=== PATIENT | female | born 1980 | race Caucasian/White ===

== ENCOUNTER 2019-06-07 18:15 | Observation (INO) ==
[2019-06-07 18:59] LABS: Basophils # (auto) 0.05 K/uL (0-0.2); Basophils % (auto) 0.8 %; Eosinophils # (auto) 0.07 K/uL (0-0.5); Eosinophils % (auto) 1.2 %; Hematocrit (blood only) 38.7 % (37-47); Hemoglobin 12.8 g/dL (12.0-16.0); Immature Granulocytes # (auto) 0.01 K/uL (0.00-0.02); Immature Granulocytes % (auto) 0.2 %; Lymphocytes # (auto) 1.73 K/uL (1.2-3.4); Mean Corpuscular Hemoglobin 29.4 pg (25-34); Mean Corpuscular Hgb Conc 33.1 g/dL (32-36); Monocytes # (auto) 0.45 K/uL (0.11-0.59); Monocytes % (auto) 7.5 %; Neutrophils # (auto) 3.66 K/uL (1.4-6.5); Neutrophils % (auto) 61.3 %; Platelet Count 281 K/uL (130-400); RDW Coefficient of Variation 13.8 % (11.5-14.5); RDW Standard Deviation 45.5 fL (36.4-46.3); Red Blood Count 4.35 M/uL (4.2-5.4); White Blood Count 5.97 K/uL (4.8-10.8)
[2019-06-07 19:08] LABS: Appearance Urine Cloudy (Clear); Bacteria Urine Automated 1+ (Negative); Blood Urine Negative (Negative); Color Urine Dark Yellow; Epithelial Cell Urine Auto >30 /lpf (0-5); Glucose Urine UA Negative (Negative); Ketones Urine 2+ (Negative); Leukocyte Esterase Urine 1+ (Negative); Nitrite Urine Negative (Negative); Protein Urine Trace (Negative); Specific Gravity Urine 1.028 (1.000-1.030); Urobilinogen Urine Negative (Negative); WBC Urine Automated >30 /hpf (0-5)
[2019-06-07 19:11] LABS: Prothrombin Time 9.8 Seconds (9.0-12.0)
[2019-06-07 19:16] LABS: BUN Creatinine Ratio 20.2 (10-20); Calcium 8.9 mg/dl (8.5-10.1); Creatinine Clr Calc Pharmacy 126.3 ml/min; Est GFR (African American) 129.2; Est GFR (Non-African American) 111.5; Potassium 3.4 mmol/L (3.5-5.1)
[2019-06-07 19:19] LABS: Bilirubin,Total 1.2 mg/dl (0.2-1)
[2019-06-07 19:24] LABS: Bilirubin Urine Negative (Negative); Ictotest Urine Negative (Negative)
[2019-06-07 19:29] LABS: Cast Urine Automated 0 /lpf (0-5)
[2019-06-07 19:36] LABS: Pregnancy Test, Serum Negative (Negative)
[2019-06-07] MEDS ORDERED: PIPERACILL/TAZOBAC CONSULT ACTIVE PRN (19:43)
[2019-06-07] MEDS ORDERED: PIPERACILLIN/TAZOBACTAM 4.5 GM/120 ML BAG IV ONE (19:43)
[2019-06-07] MEDS ORDERED: POTASSIUM CHLORIDE 20 MEQ TABCR PO STA (19:44)
[2019-06-07] MEDS: D5W AND LACTATED RINGERS 1,000 ML IV SCH (19:57)
--- NOTE | 2019-06-07 21:02 | Surgery Consultation ---
Date of Consultation June 07, 2019 Assessment & Plan (1) Acute cholecystitis due to biliary calculus: pt is a 38 year-old female who presents to Er with one week history RUQ, and back pain, U/S study- acute cholecystitis, cholelithiasis IMP: acute cholecystitis, cholelithiasis, Possible CBD stone I agree with hospitalist will admit pt to hospital, NPO, IV fluid IV antibiotic, zosyn, control pain, repeat labs in am , if (T) bilirubin up , pt need ERCP, if bilirubin normal, I will do laparoscopic cholecystectomy, possible open or cholangiogram, D/W benefits, risks and alternatives of the surgery, the risks - infection, bleeding, injury CBD, pt understood, she agrees with the plan, I answered all questions, D/W ER attending, History of Present Illness History of Present Illness CC: RUQ and back pain HPI: pt is a 38 year-old female who presents to ER with one week history RUQ and back pain with nausea, no vomiting, pt had U/S study at outside hospital diagnosis- acute cholecystitis with gallstone, pt denies fever, no diarrhea, no chest pain, today LFT's up. otherwise pt is healthy. Allergies Allergy/AdvReac Type Severity Reaction Status Date / Time No Known Allergies Allergy Verified 06/07/19 19:31 Home Medications Home Medications Medication Instructions Recorded Confirmed Type No Known Home Medications 06/07/19 06/07/19 History Patient History Surgical History (Updated 06/07/19 @ 18:54 by Sandy Witt) Previous section Social History Feels Safe at Home: Yes Smoking Status: Never smoker Review of Systems Review of Systems: All systems reviewed & are unremarkable except as noted in HPI & below Constitutional: as per Subjective / HPI Ear, Nose, Mouth, Throat: as per Subjective / HPI Respiratory: as per Subjective / HPI Cardiovascular: as per Subjective / HPI Gastrointestinal: as per Subjective / HPI Genitourinary: as per Subjective / HPI Physical Exam Constitutional: WD/WN, vitals as above well developed and well nourished ENMT: external ear and nose normal, oropharynx normal Neck: trachea midline, no thyromegaly Respiratory: normal respiratory effort, lungs clear to auscultation normal respiratory effort Cardiovascular: RRR, no murmur, no edema Rate/Rhythm: regular rate and regular rhythm Heart Sounds: normal S2 Gastrointestinal (Abdomen): normal bowel sounds, soft, nontender, no hepatosplenomegaly Percussion/Palpation: + abdomen tender and abdomen soft tenderness at RUQ, no rebound pain Musculoskeletal: no cyanosis or clubbing, extremities motor strength 5/5 Skin: no rashes, warm and dry Neurologic: patellar DTR's 2+ bilat, sensation intact Psychiatric: Orientation: alert and oriented x 3 Results & Data Vital Signs (Past 12 Hours) Vital Signs Temp Pulse Pulse Resp BP BP Pulse Ox 06/07/19 19:58 83 18 111/78 100 06/07/19 19:03 69 18 115/65 100 06/07/19 18:32 98 06/07/19 18:18 37.0 C 78 20 146/85 H 100 Laboratory Results Abnormal lab results 06/07/19 06/07/19 06/07/19 Range/Units 18:50 18:50 18:50 MPV 11.0 H (7.4-10.4) fL Potassium 3.4 L (3.5-5.1) mmol/L BUN/Creatinine Ratio 20.2 H (10-20) Total Bilirubin 1.2 H (0.2-1) mg/dl AST 203 H (15-37) U/L ALT 368 H (12-78) U/L Alkaline Phosphatase 837 H (45-117) U/L Urine Appearance Cloudy A (Clear) Urine Protein Trace H (Negative) Urine Ketones 2+ H (Negative) Ur Leukocyte Esterase 1+ H (Negative) Urine WBC (Auto) >30 H (0-5) /hpf Urine RBC (Auto) 10-30 H (0-4) /hpf U Epithel Cells (Auto) >30 H (0-5) /lpf Urine Bacteria (Auto) 1+ H (Negative)
--- NOTE | 2019-06-07 21:17 | History & Physical Report ---
Date of Service June 07, 2019 Assessment & Plan (1) Acute cholecystitis due to biliary calculus: Possible CBD stone No sepsis for now Hypokalemia secondary to poor p.o. intake Past tobacco abuse GMF Zosyn MRCP RE abnormal LFTs, possible CBD obstruction Surgery consult RE cholecystitis (Patient already seen by Dr. Tillman at the ER.) He recommends GI consultation for abnormal LFTs. Possible surgery during confinement. Replace potassium DVT prophylaxis. SCDs RE possible surgery (Recommend pharmacologic anticoagulation with Lovenox 40 mg SQ daily once bleeding risk is deemed to be minimal and negligible.) Full code Text document was generated using [employer] voice recognition software. It may contain grammatical or spelling errors. Kindly contact undersigned for clarification of any documentation item in question. History of Present Illness Chief Complaint: Cholecystitis Primary Care Provider: Ajit Fernandez MD History obtained from patient and records. Medical history significant for past tobacco abuse, history ovarian cyst. Recent confinement January 2016 for repeat section under Obstetrics service. Has had intermittent right upper quadrant achy abdominal discomfort usually postprandial since last year. The last week, right upper quadrant pain noted to be worsening and more constant. Some nausea. No emesis. No fever, no chills. Patient seen at PCPs office today. Outpatient abdominal ultrasound showed cholelithiasis with positive sonographic Gallardo sign suggestive of acute cholecystitis. CBD dilatation measuring 10 mm in the [place] hepatis. Distal obstruction is a consideration. Patient sent to the ER by PCP for evaluation. 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 Allergies Allergy/AdvReac Type Severity Reaction Status Date / Time No Known Allergies Allergy Verified 06/07/19 19:31 Home Medications Home Medications Medication Instructions Recorded Confirmed Type No Known Home Medications 06/07/19 06/07/19 History Past Med/Surg History Surgical History Previous section Social History Preferred Language: Indian 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 Required: No Beliefs That Will Affect Care: None Current Living Situation: Spouse and Family Other Information That Helps Us Care for You: No Feels Safe at Home: Yes Safety Concerns: Feels Safe At This Time Smoking Status: Former smoker Do You Dip or Chew Tobacco: No ; Second Hand Exposure: Yes ; Tobacco Cessation Education Requested by Patient: No Hx Alcohol Use: Yes Alcohol type: wine Hx Substance Use: No Review of Systems Review of Systems: As per HPI, all 10 systems reviewed, all other ROS negative Physical Exam Physical Exam: GENERAL: Comfortable, pleasant, no respiratory distress SKIN: Normal color, warm HEENT: [place] palpebral conjunctivae, no ptosis, dry buccal mucosa NECK : Supple, no tenderness CHEST : CTA, no tenderness HEART : RRR, no obvious murmurs ABDOMEN: Some distention, minimal epigastric discomfort EXTREMITIES : No LE swelling/tenderness, no other conspicuous deformities noted NEUROLOGIC : Coherent, no facial asymmetry, no other gross focality Results & Data Vital Signs (Past 12 Hours) Vital Signs Temp Pulse Pulse Resp BP BP Pulse Ox 06/07/19 19:58 83 18 111/78 100 06/07/19 19:03 69 18 115/65 100 06/07/19 18:32 98 06/07/19 18:18 37.0 C 78 20 146/85 H 100 Laboratory Results Laboratory Results WBC 5.97 K/uL (4.8-10.8) 06/07/19 18:50 RBC 4.35 M/uL (4.2-5.4) 06/07/19 18:50 Hgb 12.8 g/dL (12.0-16.0) 06/07/19 18:50 Hct 38.7 % (37-47) 06/07/19 18:50 MCV 89.0 fL (80-100) 06/07/19 18:50 MCH 29.4 pg (25-34) 06/07/19 18:50 MCHC 33.1 g/dL (32-36) 06/07/19 18:50 RDW Std Deviation 45.5 fL (36.4-46.3) 06/07/19 18:50 RDW Coeff of Trey 13.8 % (11.5-14.5) 06/07/19 18:50 Plt Count 281 K/uL (130-400) 06/07/19 18:50 MPV 11.0 fL (7.4-10.4) H 06/07/19 18:50 Immature Gran % (Auto) 0.2 % 06/07/19 18:50 Neut % (Auto) 61.3 % 06/07/19 18:50 Lymph % (Auto) 29.0 % 06/07/19 18:50 Elbert % (Auto) 7.5 % 06/07/19 18:50 Eos % (Auto) 1.2 % 06/07/19 18:50 Baso % (Auto) 0.8 % 06/07/19 18:50 Immature Gran # (Auto) 0.01 K/uL (0.00-0.02) 06/07/19 18:50 Neut # (Auto) 3.66 K/uL (1.4-6.5) 06/07/19 18:50 Lymph # (Auto) 1.73 K/uL (1.2-3.4) 06/07/19 18:50 Elbert # (Auto) 0.45 K/uL (0.11-0.59) 06/07/19 18:50 Eos # (Auto) 0.07 K/uL (0-0.5) 06/07/19 18:50 Baso # (Auto) 0.05 K/uL (0-0.2) 06/07/19 18:50 PT 9.8 Seconds (9.0-12.0) 06/07/19 18:50 INR 1.0 (0.9-1.1) 06/07/19 18:50 Sodium 137 mmol/L (136-145) 06/07/19 18:50 Potassium 3.4 mmol/L (3.5-5.1) L 06/07/19 18:50 Chloride 105 mmol/L (98-107) 06/07/19 18:50 Carbon Dioxide 25 mmol/L (21-32) 06/07/19 18:50 Anion Gap 7.0 (3-11) 06/07/19 18:50 BUN 14 mg/dl (7-18) 06/07/19 18:50 Creatinine 0.70 mg/dl (0.6-1.2) 06/07/19 18:50 Est Cr Clr Drug Dosing 126.3 ml/min 06/07/19 18:50 Est GFR ( Amer) 129.2 06/07/19 18:50 Est GFR (Non-Af Amer) 111.5 06/07/19 18:50 BUN/Creatinine Ratio 20.2 (10-20) H 06/07/19 18:50 Glucose 79 mg/dl (70-99) 06/07/19 18:50 Calcium 8.9 mg/dl (8.5-10.1) 06/07/19 18:50 Magnesium 2.0 mg/dl (1.8-2.4) 06/07/19 18:50 Total Bilirubin 1.2 mg/dl (0.2-1) H 06/07/19 18:50 AST 203 U/L (15-37) H 06/07/19 18:50 ALT 368 U/L (12-78) H 06/07/19 18:50 Alkaline Phosphatase 837 U/L (45-117) H 06/07/19 18:50 Total Protein 8.0 gm/dl (6.4-8.2) 06/07/19 18:50 Albumin 4.0 gm/dl (3.4-5.0) 06/07/19 18:50 Globulin 4.0 gm/dl (2.5-4.0) 06/07/19 18:50 Albumin/Globulin Ratio 1.0 (0.9-2) 06/07/19 18:50 Lipase 97 U/L (73-393) 06/07/19 18:50 HCG, Qual Negative (Negative) 06/07/19 18:50 Urine Color Dark Yellow 06/07/19 18:50 Urine Appearance Cloudy (Clear) A 06/07/19 18:50 Urine pH 5.0 (4.5-7.5) 06/07/19 18:50 Ur Specific Gilman 1.028 (1.000-1.030) 06/07/19 18:50 Urine Protein Trace (Negative) H 06/07/19 18:50 Urine Glucose (UA) Negative (Negative) 06/07/19 18:50 Urine Ketones 2+ (Negative) H 06/07/19 18:50 Urine Blood Negative (Negative) 06/07/19 18:50 Urine Nitrite Negative (Negative) 06/07/19 18:50 Urine Bilirubin Negative (Negative) 06/07/19 18:50 Urine Urobilinogen Negative (Negative) 06/07/19 18:50 Ur Leukocyte Esterase 1+ (Negative) H 06/07/19 18:50 Urine WBC (Auto) >30 /hpf (0-5) H 06/07/19 18:50 Urine RBC (Auto) 10-30 /hpf (0-4) H 06/07/19 18:50 U Hyaline Cast (Auto) 0 /lpf (0-5) 06/07/19 18:50 U Epithel Cells (Auto) >30 /lpf (0-5) H 06/07/19 18:50 Urine Bacteria (Auto) 1+ (Negative) H 06/07/19 18:50 Diagnostic Findings Abdominal ultrasound result as per HPI
[2019-06-07] MEDS ORDERED: PROMETHAZINE HCL 12.5 MG in SODIUM CHLORIDE 0.9% 50 ML IV PRN (22:23)
[2019-06-07] MEDS ORDERED: TRAMADOL HCL 50 MG TABLET PO PRN (22:23)
[2019-06-07] MEDS ORDERED: KETOROLAC TROMETHAMINE 15 MG/ML VIAL IV PRN (22:23)
[2019-06-07] MEDS: ACETAMINOPHEN 325 MG TAB PO SCH (22:43)
[2019-06-07] MEDS: PIPERACILLIN/TAZOBACTAM 3.375 GM in DEXTROSE 5% 100 ML IV SCH (23:48)
--- NOTE | 2019-06-07 23:48 | Emergency Department Note ---
Entered by Sandy Witt acting as a scribe for Vel Graff M.D. History of Present Illness General Chief complaint: Referred by Doctor Stated complaint: EMERGENCY GULL BLADDER - LIVER ENZYMES Time Seen by Provider: 06/07/19 18:30 History of Present Illness Provider complaint: upper abdominal pain Onset (ago): week(s) 1 Location: abdomen (upper) Radiation: back Pain Consistency: + intermittent Exacerbated By: + eating Associated symptoms: + denies other symptoms (pain right now, diarrhea) and + other (ate 1 chicken nugget at 1500, drank 2 sips of coffee this morning, on keto diet); no fever/chills and no nausea/vomiting The patient is a 38 year old female who presents to the ED with complaints of intermittent upper abdominal pain that started 1 week ago. The patient notes that her pain radiates into her back and is exacerbated by eating. The patient states that she went to her PCP 3 days ago and got blood work done, and she had an ultrasound today. The patient states that she was referred to the ED after the ultrasound. The patient notes that the only thing she ate today was 1 chicken nugget at 1500 and drank 2 sips of coffee this morning. The patient denies having the pain right now. The patient also denies fever, nausea, vomiting and diarrhea. Per , the patient is on the ketogenic diet. 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 and A total of 10 systems reviewed and were otherwise negative Physical Exam Vital Signs Vital Signs - 24 hr 06/07/19 18:18 06/07/19 18:32 06/07/19 19:03 Temperature 37.0 C Temperature Source Oral Pulse Rate 78 Pulse Rate [Left Finger] 69 Respiratory Rate 20 18 Respiratory Effort / Characteristics Respiratory Depth Blood Pressure 146/85 H Blood Pressure [Left Arm] 115/65 Blood Pressure Mean 105 Blood Pressure Mean [Left Arm] 81 Blood Pressure Position Sitting Pulse Oximetry 100 98 100 Oxygen Delivery Method Room Air Room Air Room Air Sepsis Recent Fever Within 48 Hours No Sepsis Action Taken by Nursing No Action Required 06/07/19 19:58 Temperature Temperature Source Pulse Rate Pulse Rate [Left Finger] 83 Respiratory Rate 18 Respiratory Effort / Characteristics Non-Labored Respiratory Depth Normal Blood Pressure Blood Pressure [Left Arm] 111/78 Blood Pressure Mean Blood Pressure Mean [Left Arm] 89 Blood Pressure Position Pulse Oximetry 100 Oxygen Delivery Method Room Air Sepsis Recent Fever Within 48 Hours Sepsis Action Taken by Nursing GENERAL: Awake, alert, well-appearing, in no distress HENT: Normocephalic, atraumatic. EYES: Normal conjunctiva. Sclera non-icteric. RESPIRATORY: Clear to auscultation. No wheezes. Normal respiratory effort. CARDIAC: Normal rate. Normal rhythm. Extremities warm and well perfused. GI: Soft, non-distended. Slight right upper quadrant tenderness to palpation. No rebound or guarding. No masses. MUSCULOSKELETAL: Atraumatic. Chest examination reveals no tenderness. LOWER EXTREMITIES: Calves are equal size bilaterally and non-tender. NEURO: Normal sensorium. No sensory or motor deficits noted. No facial droop. SKIN: Warm and dry. No jaundice noted. Course Course 1832: Past medical records reviewed. The patient was evaluated in room B11B. A complete history and physical exam was performed. 1903: I discussed the patient's case with Dr. Amanda [facility], General Surgery. He recommends admitting the patient to medicine and he will consult for surgery tomorrow. 1948: I discussed the patient's case with Dr. Carolyn Stephen, Hospitalist. He will evaluate the patient for further management. Consultations Consultation #1: I discussed the patient's case with Dr. Amanda [facility], General Surgery. He recommends admitting the patient to medicine and he will consult for surgery tomorrow. Time: 19:04 Consultation #2: I discussed the patient's case with Dr. Carolyn Stephen, Hospitalist. He will evaluate the patient for further management. Time: 19:49 Administered Medications Acetaminophen (Tylenol) 325 mg PO Q6 RAMANDEEP Stop: 07/07/19 22:22 Last Admin: 06/07/19 22:43 Dose: Not Given Documented by: [id number] Dextrose/Lactated Ringer's (D5w And Lactated Ringers) 1,000 mls @ 80 mls/hr IV .[id number] RAMANDEEP Stop: 07/07/19 19:44 Last Admin: 06/07/19 19:57 Dose: 80 mls/hr Documented by: [id number] Discontinued Medications Piperacillin Sod/Tazobactam Sod (Zosyn) 4.5 gm in 120 mls @ 240 mls/hr IV NOW ONE Stop: 06/07/19 20:12 Last Infusion: 06/07/19 20:31 Dose: 0 mls/hr Documented by: [id number] Admin: 06/07/19 19:57 Dose: 240 mls/hr Documented by: [id number] Potassium Chloride (Klor-Con M20) 40 meq PO NOW STA Stop: 06/07/19 19:45 Last Admin: 06/07/19 19:57 Dose: 40 meq Documented by: [id number] Medical Decision Making Differential Diagnosis Differential diagnosis: Etiologies such as biliary colic, cholecystitis, hepatitis, perihepatitis, pancreatitis, cardiac disease, pancreatitis, gastritis, peptic ulcer disease, appendicitis, ovarian cyst, ovarian torsion, ectopic , pelvic inflammatory disease, cystitis, diverticulitis, mesenteric ischemia, inflammatory bowel disease, ileus, bowel obstruction, aortic pathology, shingle s, as well as others were considered. Medical Records Attestation: I reviewed the patient's medical records. Home Medications Current Medication List: was personally reviewed by me Laboratory Data Attestation: I reviewed the patient's lab results. Result diagrams: 06/07/19 18:50 06/07/19 18:50 Lab Results 06/07/19 06/07/19 06/07/19 Range/Units 18:50 18:50 18:50 WBC 5.97 (4.8-10.8) K/uL RBC 4.35 (4.2-5.4) M/uL Hgb 12.8 (12.0-16.0) g/dL Hct 38.7 (37-47) % MCV 89.0 (80-100) fL MCH 29.4 (25-34) pg MCHC 33.1 (32-36) g/dL RDW Std Deviation 45.5 (36.4-46.3) fL RDW Coeff of Trey 13.8 (11.5-14.5) % Plt Count 281 (130-400) K/uL MPV 11.0 H (7.4-10.4) fL Immature Gran % (Auto) 0.2 % Neut % (Auto) 61.3 % Lymph % (Auto) 29.0 % Stephenson % (Auto) 7.5 % Eos % (Auto) 1.2 % Baso % (Auto) 0.8 % Immature Gran # (Auto) 0.01 (0.00-0.02) K/uL Neut # (Auto) 3.66 (1.4-6.5) K/uL Lymph # (Auto) 1.73 (1.2-3.4) K/uL Stephenson # (Auto) 0.45 (0.11-0.59) K/uL Eos # (Auto) 0.07 (0-0.5) K/uL Baso # (Auto) 0.05 (0-0.2) K/uL PT 9.8 (9.0-12.0) Seconds INR 1.0 (0.9-1.1) Sodium 137 (136-145) mmol/L Potassium 3.4 L (3.5-5.1) mmol/L Chloride 105 (98-107) mmol/L Carbon Dioxide 25 (21-32) mmol/L Anion Gap 7.0 (3-11) BUN 14 (7-18) mg/dl Creatinine 0.70 (0.6-1.2) mg/dl Est Cr Clr Drug Dosing 126.3 ml/min Est GFR ( Amer) 129.2 Est GFR (Non-Af Amer) 111.5 BUN/Creatinine Ratio 20.2 H (10-20) Glucose 79 (70-99) mg/dl Calcium 8.9 (8.5-10.1) mg/dl Magnesium (1.8-2.4) mg/dl Total Bilirubin 1.2 H (0.2-1) mg/dl AST 203 H (15-37) U/L ALT 368 H (12-78) U/L Alkaline Phosphatase 837 H (45-117) U/L Total Protein 8.0 (6.4-8.2) gm/dl Albumin 4.0 (3.4-5.0) gm/dl Globulin 4.0 (2.5-4.0) gm/dl Albumin/Globulin Ratio 1.0 (0.9-2) Lipase 97 (73-393) U/L HCG, Qual (Negative) Urine Color Urine Appearance (Clear) Urine pH (4.5-7.5) Ur Specific Gilbert (1.000-1.030) Urine Protein (Negative) Urine Glucose (UA) (Negative) Urine Ketones (Negative) Urine Blood (Negative) Urine Nitrite (Negative) Urine Bilirubin (Negative) Urine Urobilinogen (Negative) Ur Leukocyte Esterase (Negative) Urine WBC (Auto) (0-5) /hpf Urine RBC (Auto) (0-4) /hpf U Hyaline Cast (Auto) (0-5) /lpf U Epithel Cells (Auto) (0-5) /lpf Urine Bacteria (Auto) (Negative) 06/07/19 06/07/19 06/07/19 Range/Units 18:50 18:50 18:50 WBC (4.8-10.8) K/uL RBC (4.2-5.4) M/uL Hgb (12.0-16.0) g/dL Hct (37-47) % MCV (80-100) fL MCH (25-34) pg MCHC (32-36) g/dL RDW Std Deviation (36.4-46.3) fL RDW Coeff of Trey (11.5-14.5) % Plt Count (130-400) K/uL MPV (7.4-10.4) fL Immature Gran % (Auto) % Neut % (Auto) % Lymph % (Auto) % Stephenson % (Auto) % Eos % (Auto) % Baso % (Auto) % Immature Gran # (Auto) (0.00-0.02) K/uL Neut # (Auto) (1.4-6.5) K/uL Lymph # (Auto) (1.2-3.4) K/uL Stephenson # (Auto) (0.11-0.59) K/uL Eos # (Auto) (0-0.5) K/uL Baso # (Auto) (0-0.2) K/uL PT (9.0-12.0) Seconds INR (0.9-1.1) Sodium (136-145) mmol/L Potassium (3.5-5.1) mmol/L Chloride (98-107) mmol/L Carbon Dioxide (21-32) mmol/L Anion Gap (3-11) BUN (7-18) mg/dl Creatinine (0.6-1.2) mg/dl Est Cr Clr Drug Dosing ml/min Est GFR ( Amer) Est GFR (Non-Af Amer) BUN/Creatinine Ratio (10-20) Glucose (70-99) mg/dl Calcium (8.5-10.1) mg/dl Magnesium 2.0 (1.8-2.4) mg/dl Total Bilirubin (0.2-1) mg/dl AST (15-37) U/L ALT (12-78) U/L Alkaline Phosphatase (45-117) U/L Total Protein (6.4-8.2) gm/dl Albumin (3.4-5.0) gm/dl Globulin (2.5-4.0) gm/dl Albumin/Globulin Ratio (0.9-2) Lipase (73-393) U/L HCG, Qual Negative (Negative) Urine Color Dark Yellow Urine Appearance Cloudy A (Clear) Urine pH 5.0 (4.5-7.5) Ur Specific Gilbert 1.028 (1.000-1.030) Urine Protein Trace H (Negative) Urine Glucose (UA) Negative (Negative) Urine Ketones 2+ H (Negative) Urine Blood Negative (Negative) Urine Nitrite Negative (Negative) Urine Bilirubin Negative (Negative) Urine Urobilinogen Negative (Negative) Ur Leukocyte Esterase 1+ H (Negative) Urine WBC (Auto) >30 H (0-5) /hpf Urine RBC (Auto) 10-30 H (0-4) /hpf U Hyaline Cast (Auto) 0 (0-5) /lpf U Epithel Cells (Auto) >30 H (0-5) /lpf Urine Bacteria (Auto) 1+ H (Negative) ECG Data Attestation: I personally reviewed and interpreted this ECG as follows: Indication: + abdominal pain Rate (beats per minute): 84 Rhythm: + sinus with SA ECG Mcclellan: + Normal ECG ST segments: no ST depression and no ST elevation ECG Findings: no PVCs Blood Pressure Blood Pressure Findings: Elevated blood pressure Blood Pressure Disposition: further management by hospitalist JOHN Narrative Patient is a 38-year-old female presenting today complaining of daily severe right-sided upper abdominal pain prickly with eating. Undergone outpatient work-up with elevated LFTs several days ago and then today with an ultrasound concerning for acute cholecystitis. Patient arrival here says the pain has lenka ida. Minimal tenderness on palpation at this time. No fevers reported. Basic labs were repeated here. No significant leukocytosis. LFTs noted again to be somewhat elevated. Total bilirubin just mildly elevated 1.2. Discussed the imaging today with general surgery. They evaluated at this time. Recommended medical admission and possible GI consultation for evaluation for possible MRCP/ERCP in the morning. Patient is hemodynamically stable. Believe this is reasonable. Patient updated. Hospitalist contacted. Impression & Plan Cholelithiasis, Transaminitis Discharge Plan Visit Data *Final* Discharge Date/Time: 06/07/19 21:57 Chief Complaint: Referred by Doctor Stated Complaint: EMERGENCY GULL BLADDER - LIVER ENZYMES ED Provider: Vel Graff Discharge Problem: Cholelithiasis, Transaminitis Patient Disposition: Admitted As Inpatient Discharge Instructions Interventions: ED Discharge Assessment Last Done: 06/07/19 21:57 Discharge Problem: Cholelithiasis Qualifiers: Cholelithiasis location: gallbladder and bile duct Cholecystitis presence: without cholecystitis Biliary obstruction: without biliary obstruction Qualified Code(s): K80.70 - Calculus of gallbladder and bile duct without cholecystitis without obstruction The scribe's documentation has been prepared under my direction and personally reviewed by me in its entirety. I confirm that the note above accurately reflects all work, treatment, procedures, and medical decision making performed by me.
[2019-06-08] MEDS: ACETAMINOPHEN 325 MG TAB PO SCH ×2 (05:29→11:31)
[2019-06-08 06:20] LABS: Basophils # (auto) 0.05 K/uL (0-0.2); Basophils % (auto) 0.9 %; Eosinophils # (auto) 0.15 K/uL (0-0.5); Eosinophils % (auto) 2.8 %; Hematocrit (blood only) 34.8 % (37-47); Hemoglobin 11.4 g/dL (12.0-16.0); Immature Granulocytes # (auto) 0.01 K/uL (0.00-0.02); Immature Granulocytes % (auto) 0.2 %; Lymphocytes # (auto) 1.58 K/uL (1.2-3.4); Lymphocytes % (auto) 29.6 %; Mean Corpuscular Hemoglobin 29.2 pg (25-34); Mean Corpuscular Hgb Conc 32.8 g/dL (32-36); Mean Platelet Volume 10.6 fL (7.4-10.4); Monocytes # (auto) 0.37 K/uL (0.11-0.59); Monocytes % (auto) 6.9 %; Neutrophils # (auto) 3.18 K/uL (1.4-6.5); Neutrophils % (auto) 59.6 %; Platelet Count 242 K/uL (130-400); RDW Standard Deviation 45.7 fL (36.4-46.3); Red Blood Count 3.91 M/uL (4.2-5.4); White Blood Count 5.34 K/uL (4.8-10.8)
[2019-06-08 06:58] LABS: Albumin Level 3.3 gm/dl (3.4-5.0); BUN Creatinine Ratio 15.6 (10-20); Calcium 8.1 mg/dl (8.5-10.1); Creatinine Clr Calc Pharmacy 129.6 ml/min; Est GFR (African American) 131.1; Est GFR (Non-African American) 113.1; Potassium 3.8 mmol/L (3.5-5.1)
[2019-06-08 07:01] LABS: Albumin Globulin Ratio 0.9 (0.9-2); Bilirubin,Total 1.2 mg/dl (0.2-1); Globulin 3.5 gm/dl (2.5-4.0); Total Protein 6.8 gm/dl (6.4-8.2)
--- NOTE | 2019-06-08 07:19 | Anesthesiology Consultation ---
Date of Service June 08, 2019 Assessment & Plan (1) Encounter for pre-operative examination: Chart Review Chart Review: Acceptable Risk for Surgery and Patient NOT seen in Pre Admission Testing Consults Requested none ASA ASA2 Proposed Anesthesia Anesthesia Type: General Risk / Benefits Reviewed With: PT / POA / Parent / Guardian, Accepts Plan and Informed Consent Obtained History Surgery Operation Date: 06/08/19 08:20 Proposed Procedures p Laparoscopic Cholecystectomy - Alexander Tillman MD s Endoscopic Retrograde Cholangiopancreatogram - Al Funes Operation Date: 06/08/19 13:10 Proposed Procedures p Endoscopic Retrograde Cholangiopancreatogram - Al Funes Height/Weight Height: 5 ft 6 in Weight: 87.8 kg Allergies Allergy/AdvReac Type Severity Reaction Status Date / Time No Known Allergies Allergy Verified 06/07/19 19:31 Medications Home Medications Medication Instructions Recorded Confirmed Last Taken No Known Home Medications 06/07/19 06/07/19 Unknown Active Medications Generic Name Dose Route Start Last Admin Trade Name Freq PRN Reason Stop Dose Admin Acetaminophen 325 mg 06/07/19 22:23 06/08/19 11:31 Tylenol PO 07/07/19 22:22 Not Given Q6 RAMANDEEP Dextrose/Lactated Ringer's 1,000 mls @ 80 mls/hr 06/07/19 19:45 06/08/19 07:53 D5w And Lactated Ringers IV 07/07/19 19:44 80 mls/hr .[id number] RAMANDEEP Administration Piperacillin Sod/Tazobactam 115 mls @ 28.75 mls/hr 06/08/19 00:00 06/08/19 11:59 Sod 3.375 gm/ Dextrose IV 06/17/19 00:00 Infused Q8H RAMANDEEP Infusion Protocol NPO Date Last Intake of Fluids: 06/07/19 Time Last Intake of Fluids: 23:59 Date Last Intake of Solids: 06/07/19 Time Last Intake of Solids: 23:59 Past Medical History Medical History (Updated 06/08/19 @ 14:56 by Eliane Espinosa MD) No significant medical problems Exercise / Class Metabolic Activity II 4-5 Yardwork/Stairs/Walk up hill Negative for chest pain or shortness of breath. Past Surgical History Surgical History Previous section Past Anesthesia History No Hx of Anesthesia Complications and No Family Hx of Anesthesia Complications History of PONV No Hx of PONV and No Hx of Motion Sickness Social History Smoking Status: Former smoker Do You Dip or Chew Tobacco: No Hx Alcohol Use: Yes Alcohol type: wine alcohol intake frequency: holidays/special occasions only Hx Substance Use: No substance use type: does not use Review of Systems Patient denies active symptoms of GERD. Physical Exam Vital Signs Last Vital Signs Temp 36.8 C 06/08/19 14:08 Pulse 82 06/08/19 14:08 Resp 16 06/08/19 14:08 BP 105/72 06/08/19 14:08 Pulse Ox 99 06/08/19 14:08 Constitutional + obese ENMT Mouth: no TMJ abnormality and oral opening not small Thyromental Distance: > or= 3.5 Finger Breadths Mallampati Class: II Mouth / Teeth: 1. Broken Neck normal visual inspection; neck extension not limited Respiratory normal respiratory effort Auscultation: lungs clear to auscultation bilaterally Cardiovascular Rate/Rhythm: regular rate and regular rhythm Heart Sounds: no murmur Neurologic moves all extremities Psychiatric Orientation: alert and oriented x 3 Testing Laboratory Results 06/08/19 06:03 06/08/19 06:03 PT 9.8 Seconds (9.0-12.0) 06/07/19 18:50 INR 1.0 (0.9-1.1) 06/07/19 18:50 Urine Color Dark Yellow 06/07/19 18:50 Urine Appearance Cloudy (Clear) A 06/07/19 18:50 Urine pH 5.0 (4.5-7.5) 06/07/19 18:50 Ur Specific [place] 1.028 (1.000-1.030) 06/07/19 18:50 Urine Protein Trace (Negative) H 06/07/19 18:50 Urine Glucose (UA) Negative (Negative) 06/07/19 18:50 Urine Ketones 2+ (Negative) H 06/07/19 18:50 Urine Nitrite Negative (Negative) 06/07/19 18:50 Ur Leukocyte Esterase 1+ (Negative) H 06/07/19 18:50 Urine WBC (Auto) >30 /hpf (0-5) H 06/07/19 18:50 Urine RBC (Auto) 10-30 /hpf (0-4) H 06/07/19 18:50 U Hyaline Cast (Auto) 0 /lpf (0-5) 06/07/19 18:50 U Epithel Cells (Auto) >30 /lpf (0-5) H 06/07/19 18:50 Urine Bacteria (Auto) 1+ (Negative) H 06/07/19 18:50 06/07/19 18:50 Urine Culture - Preliminary Urine,Clean Catch Pin-point growth present, reincubating.
--- NOTE | 2019-06-08 07:20 | Magnetic Resonance Report ---
Study: MRCP HISTORY: Abnormal ultrasound COMPARISON: None. The prior ultrasound or report are not available. FINDINGS: Gallstones are present within the gallbladder lumen. The dominant gallstone measures 3 cm. Several smaller gallstones at the gallbladder fundus are present. Mild prominence of the biliary ductal system with common bile duct measuring 9 mm at maximum. There is a 4 mm calculus of the distal common bile duct. There is no significant distention of the pa ncreatic duct. Mild fatty replacement of the liver is present. Spleen is uniform. Kidneys negative for hydronephrosis. Bowel pattern is nonobstructive. No significant upper abdominal or retroperitoneal adenopathy. IMPRESSION: 1. Gallstones. 2. Mild generalized biliary ductal prominence with a probable 4 mm calculus of the distal common bile duct. 3. This is consistent with choledocholithiasis. 4. Study is otherwise unremarkable. 5. Mild fatty replacement of the liver. Electronically signed by: Dm Moe M.D. 06/08/2019 7:19 AM
[2019-06-08] MEDS: PIPERACILLIN/TAZOBACTAM 3.375 GM in DEXTROSE 5% 100 ML IV SCH ×2 (07:52→19:34)
[2019-06-08] MEDS: D5W AND LACTATED RINGERS 1,000 ML IV SCH ×2 (07:53→22:31)
--- NOTE | 2019-06-08 08:36 | Gastrointestinal Consultation ---
Date of Consultation June 08, 2019 Assessment & Plan (1) Transaminitis: 38 year old female admitted w/ RUQ pain, elevated LFTs, MR concerning for gallstones, biliary dilation and concern for choledocolithiasis NPO Will discuss w/ attending and contact surgery Continue IV ABX Antiemetics PRN Analgesia PRN ERCP to be listed today Cholecystectomy per general surgery Thank you for allowing us to participate in the care of this patient. Please call with any acute changes, questions or concerns. Please see addendum below with additional recommendation from my supervising physician. Present on Admission?: Yes (2) Cholelithiasis: Present on Admission?: Yes Supervising Physician Co-Signing Physician Notes I saw and evaluated the patient. She presents with complications related to choledocholithiasis and is to have combination ERCP and cholecystectomy this afternoon. Physical examination Mild scleral icterus Mild epigastric tenderness Patient with symptomatic choledocholithiasis for ERCP and cholecystectomy. We have discussed the risks to include bleeding, infection, perforation, pancreatitis and failed biliary cannulation. History of Present Illness Reason for Consultation: ERCP Requesting Physician: Liliana Tillman Attending Physician: Arnaldo Ford MD History of Present Illness 38 year old generally healthy female admitted through the ED given concern for biliary colic, elevated LFTs - GI asked to evaluate as MRCP concerning for biliary dilation and retained stone. Pt was seen and evaluated, chart reviewed. Is NPO for tentative cholecystectomy. Pt endorses intermittent episodes of biliary colic over the past 1-2 years. However, since Friday episodes have become more frequent. Suggests severe post-prandial right sided abd pain w/ radiation to her back with all PO intake. Mild nausea, no vomiting. No GERD. No change in lower GI symptoms. No weight loss. MR reviewed and shows stones, CBD dilation at 9 mm and concern for retained distal CBD stone TB 1.2 AST 105 ALT 259 ALK 627 Allergies Allergy/AdvReac Type Severity Reaction Status Date / Time No Known Allergies Allergy Verified 06/07/19 19:31 Home Medications Home Medications Medication Instructions Recorded Confirmed Type No Known Home Medications 06/07/19 06/07/19 History Patient History Surgical History Previous section Social History Preferred Language: Italian Outside Sales Account Representative Required: No Beliefs That Will Affect Care: None Current Living Situation: Spouse and Family Other Information That Helps Us Care for You: No Feels Safe at Home: Yes Safety Concerns: Feels Safe At This Time Smoking Status: Former smoker Do You Dip or Chew Tobacco: No ; Second Hand Exposure: Yes ; Tobacco Cessation Education Requested by Patient: No Hx Alcohol Use: Yes Alcohol type: wine Hx Substance Use: No Review of Systems Constitutional: no fever, no chills and no fatigue Respiratory: no cough, no dyspnea and no pain on inspiration Cardiovascular: no chest pain, no radiating jaw, neck or arm pain and no dyspnea on exertion Gastrointestinal: + abdominal pain; no nausea, no vomiting, no coffee ground emesis, no hematemesis, no blood in stools and no melena Physical Exam Constitutional: WD/WN, vitals as above Neck: trachea midline Respiratory: normal respiratory effort, lungs clear to auscultation Cardiovascular: RRR, no murmur, no edema Gastrointestinal (Abdomen): Inspection/Auscultation: normal bowel sounds Percussion/Palpation: + abdomen tender and abdomen soft; no guarding, abdomen not rigid and no abdominal mass Skin: no rashes, warm and dry Results & Data ([facility]) Vital Signs (Past 12 Hours) Vital Signs Temp Pulse Resp BP Pulse Ox 06/07/19 22:50 36.9 C 76 16 115/74 99 06/07/19 22:10 36.9 C 65 16 113/80 98 06/07/19 21:57 60 18 107/65 100 Laboratory Results 06/08/19 06/08/19 06/07/19 Range/Units 06:03 06:03 18:50 WBC 5.34 (4.8-10.8) K/uL RBC 3.91 L (4.2-5.4) M/uL Hgb 11.4 L (12.0-16.0) g/dL Hct 34.8 L (37-47) % MCV 89.0 (80-100) fL MCH 29.2 (25-34) pg MCHC 32.8 (32-36) g/dL RDW Std Deviation 45.7 (36.4-46.3) fL RDW Coeff of Trey 14.0 (11.5-14.5) % Plt Count 242 (130-400) K/uL MPV 10.6 H (7.4-10.4) fL Immature Gran % (Auto) 0.2 % Neut % (Auto) 59.6 % Lymph % (Auto) 29.6 % [place] % (Auto) 6.9 % Eos % (Auto) 2.8 % Baso % (Auto) 0.9 % Immature Gran # (Auto) 0.01 (0.00-0.02) K/uL Neut # (Auto) 3.18 (1.4-6.5) K/uL Lymph # (Auto) 1.58 (1.2-3.4) K/uL [place] # (Auto) 0.37 (0.11-0.59) K/uL Eos # (Auto) 0.15 (0-0.5) K/uL Baso # (Auto) 0.05 (0-0.2) K/uL PT (9.0-12.0) Seconds INR (0.9-1.1) Sodium 139 (136-145) mmol/L Potassium 3.8 (3.5-5.1) mmol/L Chloride 109 H (98-107) mmol/L Carbon Dioxide 25 (21-32) mmol/L Anion Gap 5.0 (3-11) BUN 10 (7-18) mg/dl Creatinine 0.67 (0.6-1.2) mg/dl Est Cr Clr Drug Dosing 129.6 ml/min Est GFR ( Amer) 131.1 Est GFR (Non-Af Amer) 113.1 BUN/Creatinine Ratio 15.6 (10-20) Glucose 95 (70-99) mg/dl Calcium 8.1 L (8.5-10.1) mg/dl Magnesium 2.0 (1.8-2.4) mg/dl Total Bilirubin 1.2 H (0.2-1) mg/dl AST 105 H (15-37) U/L ALT 259 H (12-78) U/L Alkaline Phosphatase 627 H (45-117) U/L Total Protein 6.8 (6.4-8.2) gm/dl Albumin 3.3 L (3.4-5.0) gm/dl Globulin 3.5 (2.5-4.0) gm/dl Albumin/Globulin Ratio 0.9 (0.9-2) Lipase (73-393) U/L HCG, Qual (Negative) Urine Color Urine Appearance (Clear) Urine pH (4.5-7.5) Ur Specific [place] (1.000-1.030) Urine Protein (Negative) Urine Glucose (UA) (Negative) Urine Ketones (Negative) Urine Blood (Negative) Urine Nitrite (Negative) Urine Bilirubin (Negative) Urine Urobilinogen (Negative) Ur Leukocyte Esterase (Negative) Urine WBC (Auto) (0-5) /hpf Urine RBC (Auto) (0-4) /hpf U Hyaline Cast (Auto) (0-5) /lpf U Epithel Cells (Auto) (0-5) /lpf Urine Bacteria (Auto) (Negative) 06/07/19 06/07/19 06/07/19 Range/Units 18:50 18:50 18:50 WBC (4.8-10.8) K/uL RBC (4.2-5.4) M/uL Hgb (12.0-16.0) g/dL Hct (37-47) % MCV (80-100) fL MCH (25-34) pg MCHC (32-36) g/dL RDW Std Deviation (36.4-46.3) fL RDW Coeff of Trey (11.5-14.5) % Plt Count (130-400) K/uL MPV (7.4-10.4) fL Immature Gran % (Auto) % Neut % (Auto) % Lymph % (Auto) % [place] % (Auto) % Eos % (Auto) % Baso % (Auto) % Immature Gran # (Auto) (0.00-0.02) K/uL Neut # (Auto) (1.4-6.5) K/uL Lymph # (Auto) (1.2-3.4) K/uL [place] # (Auto) (0.11-0.59) K/uL Eos # (Auto) (0-0.5) K/uL Baso # (Auto) (0-0.2) K/uL PT (9.0-12.0) Seconds INR (0.9-1.1) Sodium 137 (136-145) mmol/L Potassium 3.4 L (3.5-5.1) mmol/L Chloride 105 (98-107) mmol/L Carbon Dioxide 25 (21-32) mmol/L Anion Gap 7.0 (3-11) BUN 14 (7-18) mg/dl Creatinine 0.70 (0.6-1.2) mg/dl Est Cr Clr Drug Dosing 126.3 ml/min Est GFR ( Amer) 129.2 Est GFR (Non-Af Amer) 111.5 BUN/Creatinine Ratio 20.2 H (10-20) Glucose 79 (70-99) mg/dl Calcium 8.9 (8.5-10.1) mg/dl Magnesium (1.8-2.4) mg/dl Total Bilirubin 1.2 H (0.2-1) mg/dl AST 203 H (15-37) U/L ALT 368 H (12-78) U/L Alkaline Phosphatase 837 H (45-117) U/L Total Protein 8.0 (6.4-8.2) gm/dl Albumin 4.0 (3.4-5.0) gm/dl Globulin 4.0 (2.5-4.0) gm/dl Albumin/Globulin Ratio 1.0 (0.9-2) Lipase 97 (73-393) U/L HCG, Qual Negative (Negative) Urine Color Dark Yellow Urine Appearance Cloudy A (Clear) Urine pH 5.0 (4.5-7.5) Ur Specific [place] 1.028 (1.000-1.030) Urine Protein Trace H (Negative) Urine Glucose (UA) Negative (Negative) Urine Ketones 2+ H (Negative) Urine Blood Negative (Negative) Urine Nitrite Negative (Negative) Urine Bilirubin Negative (Negative) Urine Urobilinogen Negative (Negative) Ur Leukocyte Esterase 1+ H (Negative) Urine WBC (Auto) >30 H (0-5) /hpf Urine RBC (Auto) 10-30 H (0-4) /hpf U Hyaline Cast (Auto) 0 (0-5) /lpf U Epithel Cells (Auto) >30 H (0-5) /lpf Urine Bacteria (Auto) 1+ H (Negative) 06/07/19 06/07/19 Range/Units 18:50 18:50 WBC 5.97 (4.8-10.8) K/uL RBC 4.35 (4.2-5.4) M/uL Hgb 12.8 (12.0-16.0) g/dL Hct 38.7 (37-47) % MCV 89.0 (80-100) fL MCH 29.4 (25-34) pg MCHC 33.1 (32-36) g/dL RDW Std Deviation 45.5 (36.4-46.3) fL RDW Coeff of Trey 13.8 (11.5-14.5) % Plt Count 281 (130-400) K/uL MPV 11.0 H (7.4-10.4) fL Immature Gran % (Auto) 0.2 % Neut % (Auto) 61.3 % Lymph % (Auto) 29.0 % [place] % (Auto) 7.5 % Eos % (Auto) 1.2 % Baso % (Auto) 0.8 % Immature Gran # (Auto) 0.01 (0.00-0.02) K/uL Neut # (Auto) 3.66 (1.4-6.5) K/uL Lymph # (Auto) 1.73 (1.2-3.4) K/uL [place] # (Auto) 0.45 (0.11-0.59) K/uL Eos # (Auto) 0.07 (0-0.5) K/uL Baso # (Auto) 0.05 (0-0.2) K/uL PT 9.8 (9.0-12.0) Seconds INR 1.0 (0.9-1.1) Sodium (136-145) mmol/L Potassium (3.5-5.1) mmol/L Chloride (98-107) mmol/L Carbon Dioxide (21-32) mmol/L Anion Gap (3-11) BUN (7-18) mg/dl Creatinine (0.6-1.2) mg/dl Est Cr Clr Drug Dosing ml/min Est GFR ( Amer) Est GFR (Non-Af Amer) BUN/Creatinine Ratio (10-20) Glucose (70-99) mg/dl Calcium (8.5-10.1) mg/dl Magnesium (1.8-2.4) mg/dl Total Bilirubin (0.2-1) mg/dl AST (15-37) U/L ALT (12-78) U/L Alkaline Phosphatase (45-117) U/L Total Protein (6.4-8.2) gm/dl Albumin (3.4-5.0) gm/dl Globulin (2.5-4.0) gm/dl Albumin/Globulin Ratio (0.9-2) Lipase (73-393) U/L HCG, Qual (Negative) Urine Color Urine Appearance (Clear) Urine pH (4.5-7.5) Ur Specific [place] (1.000-1.030) Urine Protein (Negative) Urine Glucose (UA) (Negative) Urine Ketones (Negative) Urine Blood (Negative) Urine Nitrite (Negative) Urine Bilirubin (Negative) Urine Urobilinogen (Negative) Ur Leukocyte Esterase (Negative) Urine WBC (Auto) (0-5) /hpf Urine RBC (Auto) (0-4) /hpf U Hyaline Cast (Auto) (0-5) /lpf U Epithel Cells (Auto) (0-5) /lpf Urine Bacteria (Auto) (Negative) (1) Cholelithiasis Biliary obstruction: without biliary obstruction Cholecystitis presence: without cholecystitis Cholelithiasis location: gallbladder and bile duct Qualified Code(s): K80.70 - Calculus of gallbladder and bile duct without cholecystitis without obstruction
--- NOTE | 2019-06-08 14:01 | History & Physical Bridge Note ---
Date of Service June 08, 2019 History & Physical Bridge Note I have examined the patient, reviewed the History & Physical and in the interval since the performance of the History & Physical I have noted the following changes of clinical significance: no changes noted
[2019-06-08] MEDS ORDERED: INDOMETHACIN 50 MG SUPP PR SCH (14:22)
--- NOTE | 2019-06-08 14:23 | History & Physical Bridge Note ---
Date of Service June 08, 2019 History & Physical Bridge Note I have examined the patient, reviewed the History & Physical and in the interval since the performance of the History & Physical I have noted the following changes of clinical significance: no changes noted. We are planning for ERCP and combination cholecystectomy with Dr. gutierrez. The patient and I have discussed the risks of ERCP to include bleeding, infection, perforation, pancreatitis, need for follow-up studies and failed biliary cannulation.
[2019-06-08] MEDS ORDERED: BACITRACIN OINT 15 GM TUBE ONE (15:05)
[2019-06-08] MEDS ORDERED: LIDOCAINE HCL 1% 20 ML VIAL ONE (15:05)
[2019-06-08] MEDS ORDERED: BUPIVACAINE 0.5 % 5 MG/1 ML MPF 30ML VIAL ONE (15:05)
[2019-06-08] MEDS ORDERED: fentaNYL citrate 100 MCG/2 ML VIAL ONE ×3 (15:10→15:55)
[2019-06-08] MEDS ORDERED: MIDAZOLAM HCL 1 MG/ML 2ML VIAL ONE (15:10)
[2019-06-08] MEDS: CEFAZOLIN 2000MG 2,000 MG/15 ML SYR IV SCH ×2 (15:19→15:52)
[2019-06-08] MEDS ORDERED: ONDANSETRON INJ 2 MG/ML 2 ML VIAL IV PRN (15:23)
[2019-06-08] MEDS ORDERED: ePHEDrine sulfate 50 MG/ML AMP IV PRN (15:23)
[2019-06-08] MEDS ORDERED: HYDROmorphone INJ 1 MG/ML SYRINGE IV PRN (15:23)
[2019-06-08] MEDS ORDERED: ATROPINE SULFATE 0.1 MG/ML 10ML SYR IV PRN (15:23)
[2019-06-08] MEDS ORDERED: DEXAMETHASONE SOD INJ 4 MG/ML VIAL ONE (15:32)
[2019-06-08] MEDS ORDERED: PROPOFOL IV EMULSION 10 MG/ML 20 ML VIAL IV ONE ×2 (15:32→16:18)
[2019-06-08] MEDS ORDERED: ROCURONIUM BROMIDE 10 MG/ML 5 ML VIAL ONE ×2 (15:32→16:21)
[2019-06-08] MEDS ORDERED: LIDOCAINE HCL 2% 2 ML VIAL/AMP(20MG/ML) INFIL ONE (15:32)
[2019-06-08] MEDS ORDERED: NEOSTIGMINE METHYLSULFATE 5 MG/5 ML SYR ONE (15:32)
[2019-06-08] MEDS ORDERED: GLYCOPYRROLATE 0.2 MG/ML VIAL ONE ×2 (15:32→16:18)
[2019-06-08] MEDS ORDERED: ONDANSETRON INJ 2 MG/ML 2 ML VIAL ONE (15:32)
--- NOTE | 2019-06-08 15:49 | GI REPORT ---
Patient Name: Valeria Mueller Procedure Date: 06/08/2019 2:37 PM Date of : 1980 Admit Type: Inpatient Age: 38 Gender: Female Attending MD: Al Funes DO Procedure: ERCP Providers: Al Funes DO Referring MD: Amisha Sargent Md, Philip A. Pilchris Indications: Abdominal pain of suspected biliary origin, Abnormal MRCP, Elevated liver enzymes Medicines: General Anesthesia Complications: No immediate complications. Estimated blood loss: Minimal. Estimated Blood Loss: Estimated blood loss was minimal. Procedure: Pre-Anesthesia Assessment: - Prior to the procedure, a History and Physical was performed, and patient medications, allergies and sensitivities were reviewed. The patient's tolerance of previous anesthesia was reviewed. - The risks and benefits of the procedure and the sedation options and risks were discussed with the patient. All questions were answered and informed consent was obtained. - Patient identification and proposed procedure were verified prior to the procedure by the physician, the nurse and the woods rider. The procedure was verified in the procedure room. - Pre-procedure physical examination revealed no contraindications to sedation. - ASA Grade Assessment: II - A patient with mild systemic disease. - After reviewing the risks and benefits, the patient was deemed in satisfactory condition to undergo the procedure. - The anesthesia plan was to use general anesthesia. - Immediately prior to administration of medications, the patient was re-assessed for adequacy to receive sedatives. - The heart rate, respiratory rate, oxygen saturations, blood pressure, adequacy of pulmonary ventilation, and response to care were monitored throughout the procedure. - The physical status of the patient was re-assessed after the procedure. After obtaining informed consent, the scope was passed under direct vision. Throughout the procedure, the patient's blood pressure, pulse, and oxygen saturations were monitored continuously. The Scope was introduced through the mouth, and advanced to the duodenum and used to cannulate the bile duct. The ERCP was accomplished without difficulty. The patient tolerated the procedure well. Findings: The stamping press operator film was normal. The esophagus was successfully intubated under direct vision without detailed examination of the pharynx, larynx, and associated structures, and upper GI tract. The upper GI tract was grossly normal. The major papilla was congested. The bile duct was deeply cannulated with the short-nosed traction sphincterotome and 0.035 in Acrobat 2 guidewire during the first attempt (PD not injected). Contrast was injected. I personally interpreted the bile duct images. Contrast extended to the entire biliary tree. The lower third of the main bile duct contained filling defect(s) thought to be a stone, the CBD was 8 mm in diameter. Biliary sphincterotomy was made with a Fusion OMNI sphincterotome using ERBE electrocautery. There was no post-sphincterotomy bleeding. To discover objects, the biliary tree was swept with an 8.5 mm to 15 mm balloon starting at the bifurcation. Two small pale pigmented stones were removed. No stones remained and the biliary tree appeared to be draining. The endoscope was withdrawn from the patient. Indomethacin 100 mg was given via suppository to decrease the risk of post-ERCP pancreatitis (PEP). The total fluoroscopy exposure time was 22 seconds. Impression: - The major papilla appeared congested. - Choledocholithiasis was found. Complete removal was accomplished by biliary sphincterotomy and balloon extraction. - Indomethacin given to decrease risk of post-ERCP pancreatitis. Recommendation: - Avoid aspirin and nonsteroidal anti-inflammatory medicines for 1 week. - Clear liquid diet today. - Cholecystectomy planned with General surgery today. - Continue with IV hydration overnight (LR at 150 ml/hour) - Return to GI clinic PRN. Al Funes D.O. Al Funes, 06/08/2019 3:49:07 PM This report has been signed electronically. Note Initiated On: 06/08/2019 2:37 PM Number of Addenda: 0 I attest to the content of the Intraoperative Record and orders documented therein, exceptions below {[id number]}
--- NOTE | 2019-06-08 15:50 | Post Operative Brief Note ---
Immediate Post Op Note v1 Date of Surgery June 08, 2019 Pre & Post Diagnosis Operation Date: 06/08/19 08:20 Pre-Op Diagnosis: Acute Cholecystitis, Common Bile Duct Stones Operation Date: 06/08/19 13:10 ERCP with sphincterotomy and ballooon extraction I identified the patient and participated in the time-out.: Yes Procedure Operation Date: 06/08/19 08:20 Actual Procedures s Endoscopic Retrograde Cholangiopancreatogram(Bilateral) - Al Funes Operation Date: 06/08/19 13:10 <No data on this case meets the specified criteria> Surgeon Al Funes Fur Stretcher none Estimated Blood Loss 0 Findings Consistent with Post-Op Diagnosis
--- NOTE | 2019-06-08 16:38 | Fluoroscopy Report ---
[place] ERCP biliary ductal CLINICAL HISTORY: 38 years-old Female presenting with cholelithiasis, biliary ductal dilatation, prob able cholelithiasis. TECHNIQUE: Fluoroscopy was provided for endoscopic retrograde cholangiopancreatography. 9 fluoroscopi c image(s) recorded. COMPARISON: MRCP performed yesterday. FINDINGS: Procedure: An endoscope projects over the descending duodenum. A microcatheter was advanced into the common bile duct to the level of the liver hilum. Partial opacification of the cystic duct. Progressi ve opacification of the gallbladder with evidence of cholelithiasis. Suboptimal opacification of the mid to distal common duct. Balloon clearance of the common duct is noted. Peritoneal spillage: No evidence of peritoneal spillage of contrast. Extrahepatic bile ducts: The common bile duct is normal in course and caliber. Possible filling defec ts within the mid to distal common bile duct. Contrast extends into the small bowel. Intrahepatic bile ducts: There is no intrahepatic bile duct dilatation. Fluoroscopy dosage (mGy): 4.71. Fluoroscopy time: 22.3 seconds. Number or time of high level fluoroscopy (HLF), digital spot, or digital subtraction images: 0. IMPRESSION: 1. Balloon clearance of the common bile duct for presumed choledocholithiasis. 2. Patent cystic and common duct. 3. Cholelithiasis. ACT 112: Negative or not required by law. Electronically signed by: Jim Duarte M.D. 06/08/2019 4:36 PM
--- NOTE | 2019-06-08 17:24 | Post Operative Brief Note ---
Immediate Post Op Note v1 Date of Surgery June 08, 2019 Pre & Post Diagnosis Operation Date: 06/08/19 08:20 Pre-Op Diagnosis: Acute Cholecystitis, Common Bile Duct Stones Post-Op Diagnosis: Acute Cholecystitis, Common Bile Duct Stones Operation Date: 06/08/19 13:10 <No data on this case meets the specified criteria> I identified the patient and participated in the time-out.: Yes Procedure Operation Date: 06/08/19 08:20 Actual Procedures p Laparoscopic Cholecystectomy(Not Applicable) - Alexander Tillman MD s Endoscopic Retrograde Cholangiopancreatogram(Not Applicable) - Al Funes Operation Date: 06/08/19 13:10 <No data on this case meets the specified criteria> Surgeon Alexander Tillman MD Home Restoration Service Supervisor ophthalmic surgical assistant Estimated Blood Loss 20 Findings Consistent with Post-Op Diagnosis Fluids 1500ml Specimens gallbladder Anesthesia Type General Complications none Disposition Accompanied Patient To Recovery: Yes Disposition: Recovery Room Overlapping Procedure I was immediately available: during the entire case.
[2019-06-08] MEDS ORDERED: HYDROmorphone INJ 0.5 MG/0.5 ML SYR IV PRN (17:32)
[2019-06-08] MEDS ORDERED: SODIUM CHLORIDE 0.9% NEBU SOLN 3 ML NEB ONE (17:39)
[2019-06-08] MEDS ORDERED: PROMETHAZINE HCL 12.5 MG in SODIUM CHLORIDE 0.9% 50 ML IV PRN (17:39)
[2019-06-08] MEDS: fentaNYL citrate 100 MCG/2 ML VIAL IV PRN ×2 (17:59→18:10)
--- NOTE | 2019-06-08 18:12 | Anesthesiology Progress Note ---
Date of Service June 08, 2019 Anesthesia Post Procedure Vital Signs Vital Signs: Temp Pulse Pulse Pulse Resp BP BP 06/08/19 18:00 60 15 129/88 06/08/19 17:50 56 L 12 126/91 06/08/19 17:47 81 18 06/08/19 17:40 63 12 115/89 06/08/19 17:31 36.3 C L 75 12 115/86 06/08/19 14:08 36.8 C 82 16 105/72 06/08/19 08:00 36.9 C 73 16 111/77 06/07/19 22:50 36.9 C 76 16 115/74 06/07/19 22:10 36.9 C 65 16 113/80 06/07/19 21:57 60 18 107/65 06/07/19 19:58 83 18 111/78 06/07/19 19:03 69 18 115/65 06/07/19 18:32 06/07/19 18:18 37.0 C 78 20 146/85 H Pulse Ox 06/08/19 18:00 100 06/08/19 17:50 100 06/08/19 17:47 99 06/08/19 17:40 100 06/08/19 17:31 100 06/08/19 14:08 99 06/08/19 08:00 99 06/07/19 22:50 99 06/07/19 22:10 98 06/07/19 21:57 100 06/07/19 19:58 100 06/07/19 19:03 100 06/07/19 18:32 98 06/07/19 18:18 100 Pain Intensity Abdomen: Pain Intensity: 5 Transfer of Care Handoff Completed per policy Notes Mental Status: alert / awake / arousable and participated in evaluation Patient Amnestic to Procedure: Yes Nausea / Vomiting: adequately controlled Pain: adequately controlled Airway Patency, RR, SpO2: stable & adequate BP & HR: stable & adequate Hydration State: stable & adequate Anesthetic Complications: no major complications apparent and Pt Satisfied with anesthetic care
--- NOTE | 2019-06-08 18:55 | Operative Report (OR) ---
DATE OF OPERATION: 06/08/2019 PREOPERATIVE DIAGNOSES: Acute cholecystitis, cholelithiasis. POSTOPERATIVE DIAGNOSES: Acute cholecystitis, cholelithiasis. OPERATION: Laparoscopic cholecystectomy. SURGEON: Alexander Tillman MD. ANESTHESIA: General. ESTIMATED BLOOD LOSS: About 20 mL. FINDINGS: Acute cholecystitis with cholelithiasis. COMPLICATIONS: None. INDICATIONS FOR THE PROCEDURE: This is a 38-year-old female who was admitted to hospital for acute abdominal pain. The patient had a CT scan and ultrasound study showing acute cholecystitis with cholelithiasis and a possible common bile duct stone. I recommended the patient to do the ERCP first, then I recommended to do the laparoscopic cholecystectomy, possible open, possible cholangiogram. I did talk to the patient about the benefit, risk, alternate procedure. I indicated the risks may include but not limited to such as bleeding, infection, injury to common bile duct, incisional hernia. The patient understands. She signed informed consent and I answered all questions. DETAILS OF PROCEDURE: The patient received 2 grams of Ancef IV for prophylactic antibiotic. Also, patient received SCD on bilateral legs to prevent DVT and the patient had general anesthesia without difficulty. The GI doctor did ERCP first and then I came to the OR and the patient's abdomen was prepped and draped in routine sterile fashion. After time out, I injected local anesthesia by using 1% lidocaine mixed with 0.5% Marcaine just above the umbilicus. Then, I made a small incision just above the umbilicus, opened fascia and opened peritoneum under direct vision, put a Ovidio trocar in, connected to CO2 to create pneumoperitoneum, flow rate is 6 liters per minute, pressure not more than 14 mmHg. Once we got a nice pneumoperitoneum, we put the camera in, looked around the abdomen, shows normal finding on the small bowel, large bowel and liver; however, the gallbladder showed significant inflammation, wall thickening, edema, confirming the diagnosis of acute cholecystitis. Then, we put another two 5 mm trocars on the right upper quadrant, one 11 trocar in the epigastric area. Once all trocars in, we used the grasper to hold the base of gallbladder, put in the direction to the diaphragm, another grasper to hold the pouch of gallbladder, put lateral to expose the triangle of Calot. The cystic duct was identified and mobilized. I put two 10 mm metal clips on the proximal cystic duct, one on the distal cystic duct and used the scissors for transection of cystic duct. Rechecked, no active bleeding, no bile leak. The cystic artery was identified and mobilized. I put two 10 mm metal clips on the proximal cystic artery, one on the distal cystic artery, then used the scissor for transection of cystic artery. I used the scissors to take down the dissection of cystic artery. Rechecked, no active bleeding. Then, we used the Bovie to take down the gallbladder from the liver bed. Rechecked and no active bleeding, no bile leak from the liver bed. Then, we removed gallbladder through the catch bag. Then, we reinserted the Ovidio trocar in, connected to CO2 to create pneumoperitoneum, again looked around the abdomen, no active bleeding, no bile leak from the liver bed. Then, we removed all trocars under direct vision. No active bleeding from the trocar sites. Pneumoperitoneum was released. Then, we closed the umbilical incision, fascial layer by using #1 Vicryl [id number] x2, closed subcutaneous layer by using 2-0 Vicryl interruptedly, closed skin by using 4-0 Vicryl continuous running, closed the epigastric area, the fascial layer by using #1 Vicryl [id number] x2, closed subcutaneous layer by using 2-0 Vicryl interruptedly, closed skin by using 4-0 Vicryl interruptedly, closed another two 5 mm trocar site skin only by using 4-0 Vicryl. We put the dressing on. The patient tolerated the procedure well. All instrument, needle and sponge counts were correct x2 at the end of case. The patient was transferred to recovery room in stable condition. The specimen was sent to pathology. I attest to the content of the Intraoperative Record and any orders documented therein. Any exception s are noted below.
--- NOTE | 2019-06-08 21:16 | Electrocardiogram Report ---
Test Reason : Blood Pressure : / mmHG Vent. Rate : 084 BPM Atrial Rate : 084 BPM P-R Int : 130 ms QRS Dur : 076 ms QT Int : 402 ms P-R-T Axes : 048 048 039 degrees QTc Int : 475 ms Normal sinus rhythm with sinus arrhythmia Normal ECG When compared with ECG of 02-FEB-2008 22:41, No significant change was found Confirmed by Elias Manuel [id number]) on 06/08/2019 9:16:25 PM Referred By: REFERRED SELF Confirmed By:Elias Manuel
[2019-06-09] MEDS: D5W AND LACTATED RINGERS 1,000 ML IV SCH
[2019-06-09] MEDS: PIPERACILLIN/TAZOBACTAM 3.375 GM in DEXTROSE 5% 100 ML IV SCH ×2 (00:56→08:28)
--- NOTE | 2019-06-09 06:37 | Hospitalist Progress Note ---
Date of Service delayed entry date of service noted below June 09, 2019 Assessment & Plan (1) Acute cholecystitis due to biliary calculus: afebrile, no leukocytosis MRCP: 1. Gallstones. 2. Mild generalized biliary ductal prominence with a probable 4 mm calculus of the distal common bile duct. 3. This is consistent with choledocholithiasis. 4. Study is otherwise unremarkable. 5. Mild fatty replacement of the liver. ERCP: IMPRESSION: 1. Balloon clearance of the common bile duct for presumed choledocholithiasis. 2. Patent cystic and common duct. 3. Cholelithiasis. s/p Lap Cholecystectomy -- continue Zosyn continue to monitor closely post op monitor LFTs advance diet as per Gen Surg and GI Hypokalemia secondary to poor p.o. intake -- monitor and replace DVT prophylaxis. SCDs (Recommend pharmacologic anticoagulation with Lovenox 40 mg SQ daily once bleeding risk is deemed to be minimal and negligible.) Full code Disposition anticipate d/c home when medically stable Admission and Anticipated Discharge Date Admission Date: June 07, 2019 Subjective ff up for cholecystis, choledocholithiasis seen in PACU resting in bed, appears tired, mild abdominal discomfort, not in distress, smiling was having some shortness of breath earlier, given hypertonic saline neb, resolved no nausea, no cough, sputum production, chest pain, headache, dizziness no other symptoms Review of Systems Review of Systems: All systems reviewed & are unremarkable except as noted in HPI & below Physical Exam Physical Exam: General- oriented x 3, not in distress, speaks in sentences wi th no effort or accessory muscle use Head- atraumatic Eyes- PERRL, EOMI, anicteric ENT- oropharynx clear Neck- supple, no JVD, no adenopathy, no thyromegaly; carotids +2/2, no bruits appreciated Lungs- clear to auscultation bilaterally, no rales/wheezes Heart- normal rate, regular rhythm; no murmur, no gallop, no rub appreciated Abdomen- normal bowel sounds, nondistended, soft, (+) mild tenderness on all quadrants, no masses or hepatosplenomegaly lap niurka sites: no discharge, bleeding Extremities- no pretibial edema, no calf tenderness; peripheral pulses intact Neuro- alert, oriented x 3; CN 2-12 grossly intact; motor 5/5 bilaterally;sensation 100% on all extremities; no other gross focal neurologic deficits Skin- warm & dry Results & Data ([facility]) Vital Signs (Past 12 Hours) Vital Signs Temp Pulse Pulse Resp BP Pulse Ox 06/09/19 03:13 37.0 C 54 L 14 100/65 96 06/08/19 23:56 37.0 C 67 14 103/68 96 06/08/19 22:10 36.8 C 65 16 112/76 97 06/08/19 21:23 37.1 C 76 17 112/74 96 06/08/19 20:34 36.9 C 54 L 16 112/78 97 06/08/19 19:37 36.9 C 53 L 16 117/82 99 06/08/19 19:10 36.7 C 51 L 16 132/87 97 06/08/19 18:50 51 L 14 121/80 100 06/08/19 18:40 36.6 C 48 L 13 121/77 100 Laboratory Results all noted and reviewed
[2019-06-09] MEDS ORDERED: ACETAMINOPHEN 325 MG TAB PO PRN (07:53)
[2019-06-09] MEDS ORDERED: ONDANSETRON INJ 2 MG/ML 2 ML VIAL IV PRN (07:53)
[2019-06-09 08:13] LABS: Basophils # (auto) 0.02 K/uL (0-0.2); Basophils % (auto) 0.2 %; Eosinophils # (auto) 0.05 K/uL (0-0.5); Eosinophils % (auto) 0.6 %; Hematocrit (blood only) 32.4 % (37-47); Hemoglobin 10.7 g/dL (12.0-16.0); Immature Granulocytes # (auto) 0.01 K/uL (0.00-0.02); Immature Granulocytes % (auto) 0.1 %; Lymphocytes # (auto) 1.57 K/uL (1.2-3.4); Lymphocytes % (auto) 18.4 %; Mean Corpuscular Hemoglobin 29.6 pg (25-34); Mean Corpuscular Volume 89.5 fL (80-100); Mean Platelet Volume 10.8 fL (7.4-10.4); Monocytes # (auto) 0.85 K/uL (0.11-0.59); Neutrophils # (auto) 6.02 K/uL (1.4-6.5); Neutrophils % (auto) 70.7 %; Platelet Count 240 K/uL (130-400); RDW Coefficient of Variation 13.9 % (11.5-14.5); RDW Standard Deviation 45.9 fL (36.4-46.3); Red Blood Count 3.62 M/uL (4.2-5.4); White Blood Count 8.52 K/uL (4.8-10.8)
[2019-06-09 08:42] LABS: Albumin Level 3.1 gm/dl (3.4-5.0); BUN Creatinine Ratio 12.8 (10-20); Calcium 8.5 mg/dl (8.5-10.1); Creatinine Clr Calc Pharmacy 137.8 ml/min; Est GFR (African American) 133.7; Est GFR (Non-African American) 115.4; Potassium 4.1 mmol/L (3.5-5.1)
[2019-06-09 08:45] LABS: Albumin Globulin Ratio 0.9 (0.9-2); Globulin 3.3 gm/dl (2.5-4.0); Total Protein 6.4 gm/dl (6.4-8.2)
[2019-06-09 08:56] LABS: Bilirubin Direct 0.3 mg/dl (0-0.2)
--- NOTE | 2019-06-09 09:24 | Gastroenterology Progress Note ---
Date of Service June 09, 2019 Assessment & Plan (1) Transaminitis: 38 year old female admitted w/ RUQ pain, elevated LFTs, MR concerning for gallstones, biliary dilation and concern for choledocolithiasis. S/P ERCP w/ sphincterotomy and extraction of stone followed by cholecystectomy No GI contraindication to diet LFTs this AM No NSAIDs x 1 week Will sign off. Thank you for allowing us to participate in the care of this patient. Please call with any acute changes, questions or concerns. Please see addendum below with additional recommendation from my supervising physician. (2) Cholelithiasis: Admission and Anticipated Discharge Date Admission Date: June 07, 2019 Supervising Physician Co-Signing Physician Notes I saw and evaluated the patient. She appears to be much improved compared to yesterday and appears to have tolerated her ERCP without any difficulties. Review of her labs from this morning show improvement of the liver associated enzymes. At this point we will have the patient follow-up with our service as needed. I would suggest repeat liver enzymes in about 1 week to ensure resolution. I would also recommend avoidance of nonsteroidals at least 7 days to decrease the chance of post sphincterotomy bleeding. Subjective Late entry Pt was seen and evaluated this AM Feeling well No abd pain No nausea, vomiting Yet to pass gas/stool Tolerating PO intake Review of Systems Constitutional: no fever and no chills Respiratory: no cough and no dyspnea Cardiovascular: no chest pain and no radiating jaw, neck or arm pain Gastrointestinal: no abdominal pain, no coffee ground emesis, no hematemesis, no blood in stools and no melena Physical Exam Constitutional: WD/WN, vitals as above Neck: trachea midline Respiratory: normal respiratory effort, lungs clear to auscultation Cardiovascular: RRR, no murmur, no edema Rate/Rhythm: regular rate and regular rhythm Gastrointestinal (Abdomen): normal bowel sounds, soft, nontender, no hepatosplenomegaly Inspection/Auscultation: normal bowel sounds Percussion/Palpation: abdomen soft; no guarding, abdomen not rigid and no abdominal mass Skin: no rashes, warm and dry Results & Data ([facility]) Vital Signs (Past 12 Hours) Vital Signs Temp Pulse Pulse Resp BP Pulse Ox 06/09/19 07:39 36.8 C 54 L 16 95/64 L 99 06/09/19 03:13 37.0 C 54 L 14 100/65 96 06/08/19 23:56 37.0 C 67 14 103/68 96 06/08/19 22:10 36.8 C 65 16 112/76 97 06/08/19 21:23 37.1 C 76 17 112/74 96 (1) Cholelithiasis Biliary obstruction: without biliary obstruction Cholecystitis presence: without cholecystitis Cholelithiasis location: gallbladder and bile duct Qualified Code(s): K80.70 - Calculus of gallbladder and bile duct without cholecystitis without obstruction
--- NOTE | 2019-06-09 11:00 | Surgery Progress Note ---
Date of Service June 09, 2019 Assessment & Plan (1) Acute cholecystitis due to biliary calculus: POD # 1 s/p ERCP with sphincterotomy and extraction of stone and cholecystectomy -vitals stable, afebrile - postop pain minimal,controlled - no n/v - T. bili wnl, LFTS improving - no leukocytosis Plan: advance diet as tolerated continue pain management as needed okay from surgical standpoint for discharge discharge instructions reviewed work notes given f/u surgical office in [address] Tillman has seen patient, agrees with above. Subjective feeling better preop pain resolved, post op tenderness controlled with tramadol no n/v tolerating liquids + appetite urinating without difficulty walking hallway no chest pain, shortness of breath Physical Exam Constitutional: WD/WN, vitals as above no acute distress Respiratory: normal respiratory effort; no respiratory distress Gastrointestinal (Abdomen): Inspection/Auscultation: abdomen normal to inspection; abdomen not distended Percussion/Palpation: + abdomen tender (mild at incision sites) and abdomen soft; no guarding and abdomen not rigid Skin: no rashes, warm and dry + incision (covered with dry dressings) Psychiatric: A+Ox3, euthymic affect Results & Data Vital Signs (Past 12 Hours) Vital Signs Temp Pulse Pulse Resp BP Pulse Ox 06/09/19 07:39 36.8 C 54 L 16 95/64 L 99 06/09/19 03:13 37.0 C 54 L 14 100/65 96 06/08/19 23:56 37.0 C 67 14 103/68 96 Laboratory Results 06/09/19 06/09/19 06/09/19 Range/Units 07:57 07:57 07:57 WBC 8.52 (4.8-10.8) K/uL RBC 3.62 L (4.2-5.4) M/uL Hgb 10.7 L (12.0-16.0) g/dL Hct 32.4 L (37-47) % MCV 89.5 (80-100) fL MCH 29.6 (25-34) pg MCHC 33.0 (32-36) g/dL RDW Std Deviation 45.9 (36.4-46.3) fL RDW Coeff of Trey 13.9 (11.5-14.5) % Plt Count 240 (130-400) K/uL MPV 10.8 H (7.4-10.4) fL Immature Gran % (Auto) 0.1 % Neut % (Auto) 70.7 % Lymph % (Auto) 18.4 % [place] % (Auto) 10.0 % Eos % (Auto) 0.6 % Baso % (Auto) 0.2 % Immature Gran # (Auto) 0.01 (0.00-0.02) K/uL Neut # (Auto) 6.02 (1.4-6.5) K/uL Lymph # (Auto) 1.57 (1.2-3.4) K/uL [place] # (Auto) 0.85 H (0.11-0.59) K/uL Eos # (Auto) 0.05 (0-0.5) K/uL Baso # (Auto) 0.02 (0-0.2) K/uL Sodium 138 (136-145) mmol/L Potassium 4.1 (3.5-5.1) mmol/L Chloride 108 H (98-107) mmol/L Carbon Dioxide 27 (21-32) mmol/L Anion Gap 4.0 (3-11) BUN 8 (7-18) mg/dl Creatinine 0.63 (0.6-1.2) mg/dl Est Cr Clr Drug Dosing 137.8 ml/min Est GFR ( Amer) 133.7 Est GFR (Non-Af Amer) 115.4 BUN/Creatinine Ratio 12.8 (10-20) Glucose 113 H (70-99) mg/dl Calcium 8.5 (8.5-10.1) mg/dl Total Bilirubin Cancelled 1.0 (0.2-1) mg/dl Direct Bilirubin Cancelled 0.3 H (0-0.2) mg/dl AST Cancelled 50 H (15-37) U/L ALT Cancelled 166 H (12-78) U/L Alkaline Phosphatase Cancelled 474 H (45-117) U/L Total Protein Cancelled 6.4 (6.4-8.2) gm/dl Albumin Cancelled 3.1 L (3.4-5.0) gm/dl Globulin 3.3 (2.5-4.0) gm/dl Albumin/Globulin Ratio 0.9 (0.9-2)
[2019-06-09] MEDS ORDERED: metroNIDAZOLE 500 MG TAB PO SCH (14:00)
--- NOTE | 2019-06-09 14:06 | Hospitalist Progress Note ---
Date of Service June 09, 2019 Assessment & Plan (1) Acute cholecystitis due to biliary calculus: Acute cholecystitis due to biliary calculus Transaminitis s/p Laproscopic Cholecystectomy on this admission s/p Endoscopic Retrograde Cholangiopancreatogram on this admission -empirically on Zosyn antibiotics on this admission -MRCP: 1. Gallstones. 2. Mild generalized biliary ductal prominence with a probable 4 mm calculus of the distal common bile duct. 3. This is consistent with choledocholithiasis. 4. Study is otherwise unremarkable. 5. Mild fatty replacement of the liver. -s/p ERCP on 06/08/2019 1. Balloon clearance of the common bile duct for presumed choledocholithiasis. 2. Patent cystic and common duct. 3. Cholelithiasis. -s/p Laproscopic Cholecystectomy on 06/08/2019 and pathology of specimen sent to lab is pending -Zosyn stopped on 06/09/2019, Liver function enzymes downtrended but not normalized yet, patient tolerated diet and stable to go home as per general surgery service -outpatient primary care appointment 06/14/2019 11:20 AM Provider Lucia Van MD Department Internal Medicine [facility] Patient should have repeat liver function enzymes and alkaline phosphatase levels by primary care doctor -Medications sent electronically to [facility] [address] [place] [address] antibiotics of ciprofloxacin 500 mg every 12 hours for 5 days, metronidazole every 8 hours for 5 days, acetaminophen 325 every 6 hours as need ed for pain of fever (4 day supply), tramadol every 6 hours as needed for moderate to severe pain (4 day supply) . No NSAID class medications for 1 week (avoid Ibuprofen, Advil, Aleve, Motrin) -general surgical instructions and follow ups in discharge summary Hypokalemia (resolved) -admission serum potassium 3.4 -serum potassium is currently at goal after potassium supplements during hospital stay Admission and Anticipated Discharge Date Admission Date: June 07, 2019 Discharge on 06/09/2019 to home Subjective Patient is afebrile. no vomiting. no acute abdomen pain. no distress. no chest pain. no shortness of breath. breathing on room air. no dizziness. no headache. is ambulatory Review of Systems Review of Systems: All systems reviewed & are unremarkable except as noted in HPI & below Physical Exam Constitutional: comfortable Eyes: PERRL, conjunctivae normal, anicteric sclerae EOM intact bilaterally ENMT: external ear and nose normal, oropharynx normal Neck: trachea midline, no thyromegaly normal visual inspection Respiratory: normal respiratory effort, lungs clear to auscultation Cardiovascular: RRR, no murmur, no edema Gastrointestinal (Abdomen): normal bowel sounds, soft, nontender, no hepatosplenomegaly (dressing over laproscopic incissions sites) Musculoskeletal: Head/Neck/Chest: normocephalic and head atraumatic Neurologic: PERRL, EOMI, accommodation nl, no face palsy, no dysarthria CN's II-XI intact bilaterally Psychiatric: A+Ox3, euthymic affect Results & Data ([facility]) Vital Signs (Past 12 Hours) Vital Signs Temp Pulse Pulse Resp BP Pulse Ox 06/09/19 11:46 37.0 C 81 16 94/61 L 94 06/09/19 07:39 36.8 C 54 L 16 95/64 L 99 06/09/19 03:13 37.0 C 54 L 14 100/65 96
--- NOTE | 2019-06-09 14:12 | Discharge Summary ---
Date of Service June 09, 2019 Admission HPI Per Admitting Provider History obtained from patient and records. Medical history significant for past tobacco abuse, history ovarian cyst. Recent confinement January 2016 for repeat section under Obstetrics service. Has had intermittent right upper quadrant achy abdominal discomfort usually postprandial since last year. The last week, right upper quadrant pain noted to be worsening and more constant. Some nausea. No emesis. No fever, no chills. Patient seen at PCPs office today. Outpatient abdominal ultrasound showed cholelithiasis with positive sonographic Gallardo sign suggestive of acute cholecystitis. CBD dilatation measuring 10 mm in the [place] hepatis. Distal obstruction is a consideration. Patient sent to the ER by PCP for evaluation. 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 Exam Per Admitting Provider GENERAL: Comfortable, pleasant, no respiratory distress SKIN: Normal color, warm HEENT: [place] palpebral conjunctivae, no ptosis, dry buccal mucosa NECK : Supple, no tenderness CHEST : CTA, no tenderness HEART : RRR, no obvious murmurs ABDOMEN: Some distention, minimal epigastric discomfort EXTREMITIES : No LE swelling/tenderness, no other conspicuous deformities noted NEUROLOGIC : Coherent, no facial asymmetry, no other gross focality Principal Diagnosis Acute cholecystitis due to biliary calculus Transaminitis s/p Laproscopic Cholecystectomy on this admission s/p Endoscopic Retrograde Cholangiopancreatogram on this admission Hypokalemia (resolved Discharge Exam Constitutional comfortable Eyes PERRL, conjunctivae normal, anicteric sclerae EOM intact bilaterally ENMT external ear and nose normal, oropharynx normal Neck trachea midline, no thyromegaly normal visual inspection Respiratory normal respiratory effort, lungs clear to auscultation Cardiovascular RRR, no murmur, no edema Gastrointestinal (Abdomen) normal bowel sounds, soft, nontender, no hepatosplenomegaly (dressing over laproscopic incissions sites) Musculoskeletal Head/Neck/Chest: normocephalic and head atraumatic Neurologic PERRL, EOMI, accommodation nl, no face palsy, no dysarthria CN's II-XI intact bilaterally Psychiatric A+Ox3, euthymic affect Discharge Data Allergies Allergy/AdvReac Type Severity Reaction Status Date / Time No Known Allergies Allergy Verified 06/07/19 19:31 Consultations 06/07/19 19:50 ED Decision to Admit Stat 06/07/19 22:23 Consult Gastroenterology Routine Consult General Surgery Routine 06/08/19 07:32 Consult Gastroenterology Routine Procedures Performed Operation Date: 06/08/19 08:20 Actual Procedures p Laparoscopic Cholecystectomy(Not Applicable) - Alexander Tillman MD s Endoscopic Retrograde Cholangiopancreatogram(Not Applicable) - Clintsukhwinder Funes Operation Date: 06/08/19 13:10 <No data on this case meets the specified criteria> Ordered Studies 06/07/19 21:17 MR MRCP Routine 06/08/19 08:39 FL ERCP biliary ductal Routine Hospital Course (1) Acute cholecystitis due to biliary calculus: Acute cholecystitis due to biliary calculus Transaminitis s/p Laproscopic Cholecystectomy on this admission s/p Endoscopic Retrograde Cholangiopancreatogram on this admission -empirically on Zosyn antibiotics on this admission -MRCP: 1. Gallstones. 2. Mild generalized biliary ductal prominence with a probable 4 mm calculus of the distal common bile duct. 3. This is consistent with choledocholithiasis. 4. Study is otherwise unremarkable. 5. Mild fatty replacement of the liver. -s/p ERCP on 06/08/2019 1. Balloon clearance of the common bile duct for presumed choledocholithiasis. 2. Patent cystic and common duct. 3. Cholelithiasis. -s/p Laproscopic Cholecystectomy on 06/08/2019 and pathology of specimen sent to lab is pending -Zosyn stopped on 06/09/2019, Liver function enzymes downtrended but not normalized yet, patient tolerated diet and stable to go home as per general surgery service -outpatient primary care appointment 06/14/2019 11:20 AM Provider Lucia Van MD Department Internal Medicine [facility] Patient should have repeat liver function enzymes and alkaline phosphatase levels by primary care doctor -Medications sent electronically to [facility] [address] [place] [address] antibiotics of ciprofloxacin 500 mg every 12 hours for 5 days, metronidazole every 8 hours for 5 days, acetaminophen 325 every 6 hours as needed for pain of fever (4 day supply), tramadol every 6 hours as needed for moderate to severe pain (4 day supply) . No NSAID class medications for 1 week (avoid Ibuprofen, Advil, Aleve, Motrin) -general surgical instructions and follow ups in discharge summary Hypokalemia (resolved) -admission serum potassium 3.4 -serum potassium is currently at goal after potassium supplements during hospital stay Total Time Total Time Spent Total Time Spent (In Minutes): 40 minutes Total Time Includes: Examination of the Patient, Discharge Planning, Medication Reconciliation and Communication With Other Providers Discharge Plan Discharge Items Patient Disposition: Home - Self-Care Reason For Visit: CHOLECYSTITIS,PSS CBD STONE Discharge Diagnosis: Acute cholecystitis due to biliary calculus Transaminitis s/p Laproscopic Cholecystectomy on this admission s/p Endoscopic Retrograde Cholangiopancreatogram on this admission Hypokalemia (resolved) Condition on Discharge: Good Activity: Per Instructions section Non-emergency contact: Primary Care Provider Call non-emergency contact if: you have any medication questions Follow-up/Referrals: Ajit Fernandez MD [Primary Care Provider] - Diet: Regular Addtl Attending Provider Instructions: 06/14/2019 11:20 AM Provider Lucia Van MD Department Internal Medicine [facility] Patient should have repeat liver function enzymes and alkaline phosphatase levels by primary care doctor Medications sent electronically to [facility] [address] [place] [address] antibiotics of ciprofloxacin 500 mg every 12 hours for 5 days, metronidazole every 8 hours for 5 days acetaminophen 325 every 6 hours as needed for pain of fever (4 day supply) tramadol every 6 hours as needed for moderate to severe pain (4 day supply) No NSAID class medications for 1 week (avoid Ibuprofen, Advil, Aleve, Motrin) Addtl Tip Fixer Provider Instructions: Post-Surgical ~Discharge Instructions Activity Recommendations: - lifting limitation: (20 pounds for 3-4 weeks), - exercise/sex/sports limit: (nonstrenuous for 3-4 weeks), - driving or machine use limit: No driving while taking pain medication - Shower/bathe limit: (may shower in 3 days) Diet: - Resume previous diet SPECIAL CARE INSTRUCTIONS: - May shower in 3 days. Sponge bath and wash hair in meantime. After 3 days rem ove outer dressing and shower. - Leave steri strips on for one week. - Call the surgeon's office with any questions or concerns - - (ex. temperature higher than 101 degrees F, excessive bleeding or pain). FOLLOW UP VISIT: - If not already scheduled, please call the office to schedule a two week follow-up appointment. Office number Pending Studies at Discharge: Yes (Gallbladder pathology, will be reviewed at follow-up visit) Studies:: Gallbladder specimen pathology report Stand-Alone Forms: Work/School Release (ED), [facility], Opioid Pain Management, Work/School Release (Inpt), Smoking Cessation Medications and DC Order Prescriptions: New metronidazole 500 mg Tablet 500 mg PO Q8H 5 Days Qty: 15 RF: 0 ciprofloxacin HCl 500 mg Tablet 500 mg PO Q12H 5 Days Qty: 10 RF: 0 acetaminophen 325 mg tablet 325 mg PO Q6H PRN (Reason: fever or pain) 4 Days Qty: 16 RF: 0 tramadol 50 mg Tablet 50 mg PO Q6H PRN (Reason: moderate to severe pain) 4 Days Qty: 16 RF: 0 No Action No Known Home Medications RF: 0 Discharge Orders: Discharge Order (Routine); Ordered 06/09/19 Ordered By: Domingo Mccarthy/Other Patient Handouts: Cholecystectomy, DVT Prevent Admission Data Admit Date/Time: 06/07/19 21:18 Attending Provider: Domingo Dow Admit Provider: Cirilo Anderson Primary Care Provider: Ajit Fernandez Other Providers: Perla Nava ; Torie Ramirez ; Neville Ravi ; Regina Rivera ; Poncho Camacho ; Al Funes ; Damián Cordova ; Jannette West ; Peter Collins ; Jimmy Schmitt ; Milka Morton ; Darline Gleason ; Yanelis Aranda ; Olya Stein ; Marquis Felder ; Cirilo Anderson ; Alexander Tillman Other Interventions: Discharge Summary Assessment (RN) Last Done: 06/09/19 11:37
[2019-06-09] MEDS ORDERED: CIPROFLOXACIN 500 MG TAB PO SCH (18:00)
== END 2019-06-09 15:38 | disposition home or self-care (01) | DRG 410 ==
LOC: ED 18:15 → 3W 21:18 → SUATTDRO 21:18 → INTOOBSV 21:18 → 3W 21:57